=== PATIENT | female | born 1985 | race African-American/Black ===

== ENCOUNTER 2018-11-12 11:17 | Emergency (ER) | payer MEDICAID ==
[~2018-11-12] VITALS: Ht 165.1 cm; Wt 61.0 kg
[2018-11-12 11:38] VITALS: BP 122/80
== END 2018-11-12 17:24 | disposition left against medical advice (07) ==
LOC: ER 12:31
DX: R53.1 Weakness (principal); M79.10 Myalgia, unspecified site; Z53.21 Procedure and treatment not carried out due to patient leaving prior to being seen by health care provider

== ENCOUNTER 2019-03-15 13:16 | Emergency (ER) | payer MEDICAID ==
[~2019-03-15] VITALS: Ht 167.6 cm; Wt 55.0 kg
[2019-03-15] MEDS ORDERED: BACITRACIN ZINC OINT UDPKT TOP ONE (14:45)
[2019-03-15] MEDS ORDERED: LIDOCAINE HCL/PF 1% 10 MG/ML 5ML VIAL IJ ONE (14:45)
[2019-03-15 17:34] VITALS: BP 124/82
[2019-03-17] MEDS ORDERED: QUETIAPINE FUMARATE 25MG TABLET PO SCH (17:45)
== END 2019-03-15 17:39 | disposition home or self-care (01) ==
LOC: ER 13:16
DX: S01.21XA Laceration without foreign body of nose, initial encounter (principal); R51 Headache; M25.531 Pain in right wrist; V43.52XA Car driver injured in collision with other type car in traffic accident, initial encounter; Y93.89 Activity, other specified; Y92.410 Unspecified street and highway as the place of occurrence of the external cause
CPT/HCPCS: 70450; 70486; 73110; 81025; 99284; J3490; Z7610

== ENCOUNTER 2019-03-17 14:12 | Emergency (ER) | payer MEDICAID ==
[~2019-03-17] VITALS: Ht 165.1 cm; Wt 58.0 kg
[2019-03-17 14:32] VITALS: BP 97/69
== END 2019-03-17 15:01 | disposition home or self-care (01) ==
LOC: ER 14:24
DX: Z48.00 Encounter for change or removal of nonsurgical wound dressing (principal)
CPT/HCPCS: 99281

== ENCOUNTER 2024-09-11 08:28 | Emergency (ER) | payer MEDICAID ==
[~2024-09-11] VITALS: Ht 165.1 cm; Wt 77.0 kg
[2024-09-11 08:35] VITALS: O2SAT 100
[2024-09-11 09:31] VITALS: BP 122/74; PULSE 76; RESP 16; TEMP 36.55848; O2SAT 99
== END 2024-09-11 10:57 | disposition home or self-care (01) ==
LOC: ER 08:28
DX: R07.9 Chest pain, unspecified (principal)
CPT/HCPCS: 71045; 93005; 99283